=== PATIENT | female | born 1985 | race Caucasian/White ===

== ENCOUNTER 2018-11-19 19:45 | Emergency (ER) | payer MEDICAID ==
[~2018-11-19] VITALS: Ht 167.6 cm; Wt 82.6 kg
[2018-11-19 20:32] VITALS: Ht 167.6 cm; Wt 82.6 kg
[2018-11-19 21:04] VITALS: BP 119/72
== END 2018-11-19 21:03 | disposition home or self-care (01) ==
LOC: ED 19:45
DX: J06.9 Acute upper respiratory infection, unspecified (principal); Z88.1 Allergy status to other antibiotic agents; Z88.0 Allergy status to penicillin